=== PATIENT | male | born 2000 | race Caucasian/White ===

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

== ENCOUNTER 2021-04-23 04:07 | Emergency (ER) | payer BC ==
[~2021-04-23] VITALS: Ht 182.9 cm; Wt 75.0 kg
[~2021-04-23 04:07] MED LIST: PROTONIX 40MG T40 MG PO
[2021-04-23 04:18] VITALS: TEMP 98.2
[2021-04-23 04:32] LABS: BASO # 0.1 (0.0-0.2); BASO % 0.9 % (0.0-2.0); EOS # 0.4 (0.0-0.7); EOS % 5.7 % (0-4.0); GRAN # 3.4 (1.4-6.5); HEMATOCRIT 44.1 % (36.0-47.0); HEMOGLOBIN 15.3 g/dl (12.5-16.1); LYMPH # 2.9 (1.2-3.4); LYMPH % 38.1 % (20.0-51.0); MEAN CELL VOLUME 91 fl (80.0-95.0); MEAN CORPUSCULAR HEMOGLOBIN 32 pg (26.0-32.0); MEAN CORPUSCULAR HGB CONC 35 g/dl (33.0-37.0); MEAN PLATELET VOLUME 9.1 fl (7.4-10.4); MONO # 0.7 (0.1-0.6); MONO % 8.9 % (1.7-9.3); PLATELET COUNT 269 K/mm3 (130-400); RED BLOOD COUNT 4.83 M/mm3 (4.20-5.60); REDCELL DISTRIBUTION WIDTH-CV 11.7 % (11.5-14.5)
[2021-04-23 04:44] LABS: ALANINE AMINOTRANSFERASE 22 U/L (4-49); ALBUMIN 4.5 gm/dL (3.5-5.0); ALKALINE PHOSPHATASE 81 U/L (50-136); ANION GAP 9 mmol/L (7-16); AST,SGOT 40 U/L (15-37); BILIRUBIN,TOTAL 0.5 mg/dL (0.0-1.0); BLOOD UREA NITROGEN 19 mg/dL (9-20); CALCIUM 9.4 mg/dL (8.4-10.2); CARBON DIOXIDE 27 mmol/L (22-30); CHLORIDE 102 mmol/L (98-107); CREATININE, serum 0.95 (0.66-1.25); GLUCOSE 96 mg/dL (74-106); POTASSIUM 4.1 mmol/L (3.4-5.0); SODIUM 138 mmol/L (137-145); TOTAL PROTEIN 8.1 gm/dL (6.4-8.2)
[2021-04-23 04:55] LABS: TROPONIN-I < 0.012 ng/mL (0.000-0.035)
[2021-04-23 06:07] VITALS: BP 123/84; PULSE 89
== END 2021-04-23 06:09 | disposition home or self-care (01) ==
LOC: COL.ER 04:07
PROVIDERS: Emergency Medicine
DX: K21.9 Gastro-esophageal reflux disease without esophagitis (principal); Z79.899 Other long term (current) drug therapy
CPT/HCPCS: J2060; J7030

== ENCOUNTER → 2021-12-01 | Outpatient (CLI) | payer BC | LOC: COL.RAD 15:06 | DX: M85.88 Other specified disorders of bone density and structure, other site (principal) ==

== ENCOUNTER → 2021-12-15 | Outpatient (CLI) | payer BC | LOC: COL.RAD 10:02 | DX: M51.27 Other intervertebral disc displacement, lumbosacral region (principal); M51.37 Other intervertebral disc degeneration, lumbosacral region | CPT/HCPCS: A9575 ==